=== PATIENT | male | born 1965 | race Caucasian/White ===

== ENCOUNTER 2016-11-10 21:26 | Emergency (ER) | payer BC ==
[~2016-11-10] VITALS: Ht 177.8 cm; Wt 172.3 kg
[2016-11-10] MEDS ORDERED: NORCO 5/3251 TABLET PO (22:10)
[2016-11-10] MEDS ORDERED: MOTRIN600 MG PO (22:10)
[2016-11-10 22:33] VITALS: BP 112/53
== END 2016-11-10 22:43 | disposition home or self-care (01) ==
LOC: EME → EDBD 21:26 → EME 22:43
DX: S83.91XA Sprain of unspecified site of right knee, initial encounter (principal); W19.XXXA Unspecified fall, initial encounter; X50.1XXA Overexertion from prolonged static or awkward postures, initial encounter
CPT/HCPCS: 73564; 99281; 99284